=== PATIENT | female | born 1945 | race Two or more races ===

== ENCOUNTER 2020-03-04 12:56 | Outpatient (CLI) | payer MEDICARE, MEDICAID ==
[~2020-03-04] VITALS: Ht 152.4 cm; Wt 87.1 kg
[~2020-03-04 12:56] MED LIST: ASPIRIN81 M1 PO; COZAAR25 MG PO; LEXAPRO10 MG PO; NEXIUM40 MG PO
[2020-03-04 13:10] VITALS: BP 127/75
--- NOTE | 2020-03-04 15:15 | Consultation ---
DATE OF CONSULTATION: 03/04/2020 CHIEF COMPLAINT: Referral for screening colonoscopy, also chronic GERD, abdominal pain, constipation. PAST MEDICAL HISTORY: 1. Constipation. 2. Hypertension. 3. GERD. 4. Depression. 5. Arthritis. PAST SURGICAL HISTORY: Breast reduction. MEDICATIONS: Please see medication reconciliation list. FAMILY HISTORY: No family history of GI malignancies. SOCIAL HISTORY: The patient denies any tobacco, alcohol, or drug abuse. ALLERGIES: No known allergies. REVIEW OF SYSTEMS: Positive for GERD, constipation. PHYSICAL EXAMINATION: VITAL SIGNS: Temperature 97.3, blood pressure 127/75, pulse 78, respirations 20. HEENT: Normocephalic and atraumatic. Sclerae anicteric. NECK: Supple. No evidence of obvious lymphadenopathy. CARDIOVASCULAR: Regular rate and rhythm. Plus S1 and S2. LUNGS: Clear to auscultation bilaterally. ABDOMEN: Positive bowel sounds. Soft and nontender. No rebound. No guarding. No peritoneal sign. EXTREMITIES: No cyanosis, no clubbing, no edema ASSESSMENT AND PLAN: This is a 74-year-old female referred for screening colonoscopy, also complaining of chronic GERD. Plan to do an endoscopy and colonoscopy. We will consider trial of Linzess 72 mcg for constipation if the endoscopy and colonoscopy is negative. I want to thank, Dr. Quinones, for this kind referral. Scott Hutchison M.D. DR: Rachel JOB#: [id number] CC: Scott Quinones M.D.; Fax#: [phone]
== END 2020-03-04 14:56 | disposition home or self-care (01) ==
LOC: PAN 12:56
DX: K21.9 Gastro-esophageal reflux disease without esophagitis (principal); R10.9 Unspecified abdominal pain; K59.00 Constipation, unspecified; I10 Essential (primary) hypertension; F32.9 Major depressive disorder, single episode, unspecified; M19.90 Unspecified osteoarthritis, unspecified site
CPT/HCPCS: G0463

== ENCOUNTER 2020-03-11 09:22 | Day surgery (SDC) | payer MEDICARE, MEDICAID ==
[2020-03-11] VITALS (8 sets, daily range): BP systolic 132–171; BP diastolic 58–91
[~2020-03-11] VITALS: Ht 152.4 cm; Wt 72.6 kg
[~2020-03-11 09:22] MED LIST changes: +LR 1000ml 1,000 ML IVLG SCH
[2020-03-11] MEDS ORDERED: Midazolam 2mg/2ml Inj IVP PRN (09:30)
[2020-03-11] MEDS ORDERED: LR 1000ml 1,000 ML IVLG SCH (09:30)
[2020-03-11] MEDS ORDERED: fentaNYL 100 mcg/2 mL IV PRN (09:30)
[2020-03-11] MEDS ORDERED: Atropine Inj 1mg/10ml Syr IVP PRN (09:30)
[2020-03-11] MEDS ORDERED: Labetalol 5mg/ml 20ml vial IV PRN (09:30)
[2020-03-11] MEDS ORDERED: DiphenhydrAMINE 50mg/ml Inj IVP PRN (09:30)
--- NOTE | 2020-03-11 09:34 | Anethesia Preoperative Eval ---
Lidia Tuttle MD 03/11/20 0934: Anesthesia Pre-op PMH/ROS General Date of Evaluation: Mar 11, 2020 Time of Evaluation: 09:32 Anesthesiologist: allyson ASA Score: ASA 4 Mallampati Score Class I : Soft palate, uvula, fauces, pillars visible Class II: Soft palate, uvula, fauces visible Class III: Soft palate, base of uvula visible Class IV: Only hard plate visible Mallampati Classification: Class II Surgeon: rosa maria Surgical Procedure: egd/colonoscopy Anesthesia History: none Social History: drug use Family History: no anesthesia problems Allergies: Coded Allergies: No Known Allergies (Unverified , 02/26/12) Medications: see eMAR Patient NPO?: Yes Past Medical History Cardiovascular: Reports: HTN, other - hypercholesterolemia Gastrointestinal/Genitourinary: Reports: GERD Musculoskeletal/Integumentary: Reports: OA, DJD Other: obesity PSxH Narrative: breast reduction Anesthesia Pre-op Phys. Exam Physician Exam Constitutional: NAD Neurologic: CN 2-12 intact Cardiovascular: RRR Respiratory: CTA Gastrointestinal: S/NT/ND Airway Exam Mallampati Score: Class II MO: limited Neck: short TMD: 2fb ROM: limited Anesthesia Pre-op A/P Labs Microbiology Date/Time Source Procedure Growth Status 03/08/20 11:05 Nasopharynx SARS-CoV-2 RdRp Gene Assay - Final Complete Risk Assessment & Plan Assessment: asa4 Plan: mac Status Change Before Surgery: No Pre-Antibiotics Drug: Piotr Baca MD 03/11/20 1037: Anesthesia Pre-op PMH/ROS General Date of Evaluation: Mar 11, 2020 Time of Evaluation: 10:02 Anesthesiologist: Mimi ASA Score: ASA 3 Mallampati Classification: Class II Surgeon: Rosa Maria Diagnosis: Colon CA screeningh Surgical Procedure: EGD Colonoscopy Anesthesia History: none Family History: no anesthesia problems Allergies: Coded Allergies: No Known Allergies (Unverified , 02/26/12) Patient NPO?: Yes Past Medical History Cardiovascular: Reports: HTN; Denies: CAD, SC, valve dz, arrhythmia, other Pulmonary: Reports: ABRIL; Denies: asthma, COPD, other Gastrointestinal/Genitourinary: Reports: GERD; Denies: CRI, ESRD, other Neurologic/Psychiatric: Reports: depression/anxiety; Denies: dementia, CVA, TIA, other Endocrine: Reports: hypothyroidism; Denies: DM, steroids, other HEENT: Denies: cataract (L), cataract (R), glaucoma, [place] (L), [place] (R), other Hematology/Immune: Denies: anemia, DVT, bleeding disorder, other Musculoskeletal/Integumentary: Denies: OA, RA, DJD, DDD, edema, other Other: obesity PMH Narrative: as above PSxH Narrative: See H&P Anesthesia Pre-op Phys. Exam Physician Exam Constitutional: NAD Neurologic: CN 2-12 intact Cardiovascular: RRR Respiratory: CTA Gastrointestinal: S/NT/ND Airway Exam Mallampati Score: Class II MO: limited Neck: stiff ROM: limited Teeth: missing Dentures: no upper, no lower Anesthesia Pre-op A/P Studies Pre-op Studies: EKG - SR Risk Assessment & Plan Assessment: ASA 3 Plan: MAC Status Change Before Surgery: No Lidia Tuttle MD Mar 11, 2020 09:34 Piotr Springer MD Mar 11, 2020 10:37
[2020-03-11] MEDS ORDERED: fentaNYL 100 mcg/2 mL IV ONE (10:00)
[2020-03-11] MEDS ORDERED: LR 1000ml ONE (10:00)
--- NOTE | 2020-03-11 10:04 | Pre-Procedure Note/Attestation ---
Pre-Procedure Note/Attestation Complete Prior to Procedure Planned Procedure: not applicable Procedure Narrative: colonoscopy Indications for Procedure Pre-Operative Diagnosis: screening Attestation I attest that I discussed the nature of the procedure; its benefits; risks and complications; and alternatives (and the risks and benefits of such alternatives), prior to the procedure, with the patient (or the patient's legal entry level sales representative). I attest that, if there was a reasonable possibility of needing a blood tra nsfusion, the patient (or the patient's legal entry level sales representative) was given the [facility] standardized written summary, pursuant to the Beka [place]fellow Blood Safety Act ([place] Health and Safety Code # 1645, as amended). I attest that I re-evaluated the patient just prior to the surgery and that there has been no change in the patient's H&P, except as documented below: Scott Hutchison MD Mar 11, 2020 10:03
--- NOTE | 2020-03-11 10:04 | Short Stay Surgery H&P ---
History of Present Illness History of Present Illness Chief Complaint see office consult note HPI Mal Conti is a 74 year old female who was admitted on for Colonoscopy Patient History Allergies: Coded Allergies: No Known Allergies (Unverified , 02/26/12) Medication History Scheduled Aspirin (Aspirin), 81 MG PO DAILY, (Reported) Escitalopram Oxalate* (Lexapro*), 10 MG PO DAILY, (Reported) Esomeprazole Magnesium (Nexium), 40 MG PO DAILY, (Reported) Losartan Potassium* (Cozaar*), 25 MG PO Q12H, (Reported) Physical Exam Vital Signs Last Vital Signs Date Time Temp Pulse Resp B/P (MAP) Pulse Ox O2 Delivery O2 Flow Rate FiO2 03/11/20 09:47 97.9 73 18 171/58 97 Room Air Plan Attestation Are the patient's medical conditions optimized for surgery? Scott Hutchison MD Mar 11, 2020 10:04
--- NOTE | 2020-03-11 10:42 | Endoscopy Procedure Note ---
Endoscopy Procedure Note General Indication for Procedure: screening colon, GERD Procedures Performed: EGD, colonoscopy Operative Findings/Diagnosis: gastritis Specimen: yes Pt Tolerated Procedure Well: Yes Estimated Blood Loss: none Anesthesia Anesthesiologist: ne Anesthesia: MAC Inserted Devices Implant(s) used?: No Quality Quality of Bowel Preparation: Good Did scope reach the cecum?: Yes Was there any complications?: No GI Core Measures 50 yrs or older w/o bx or poly: No 10yrs. F/U recommended: Yes If not recommended, why?: Above average risk 18 years or older w/prev. colo: No Scott Hutchison MD Mar 11, 2020 10:42
--- NOTE | 2020-03-11 10:50 | Immediate Post-Op Evaluation ---
Immediate Post-Op Evalulation Immediate Post-Op Evalulation Procedure: EGD Colonoscopy Date of Evaluation: Mar 11, 2020 Time of Evaluation: 10:49 IV Fluids: 600 Blood Products: none Estimated Blood Loss: none Urinary Output: none Blood Pressure Systolic: 126 Blood Pressure Diastolic: 75 Pulse Rate: 72 Respiratory Rate: 20 O2 Sat by Pulse Oximetry: 98 Temperature (Fahrenheit): 97.8 Pain Score (1-10): 1 Nausea: No Vomiting: No Complications none Patient Status: reacts, patent, none Hydration Status: adequate Piotr Springer MD Mar 11, 2020 10:50
--- NOTE | 2020-03-11 11:30 | Procedure Note ---
DATE OF PROCEDURE: 03/11/2020 SURGEON: Scott Hutchison MD. PROCEDURE: Upper endoscopy with biopsy and colonoscopy. ANESTHESIA: Per Dr. Piotr Springer. INSTRUMENT: Olympus adult flexible endoscope and colonoscope. INDICATION: Screening colonoscopy evaluation and chronic GERD. REASON FOR PROCEDURE: The procedure, risks, benefits, and possible consequences, including hemorrhage, aspiration, perforation and infection, and alternative treatments, were explained to the patient/legal guardian by Dr. Scott Hutchison and the patient/legal guardian understood and accepted these risks. DESCRIPTION OF PROCEDURE: After informed consent was obtained and the patient was adequately sedated, Olympus upper endoscope was advanced from mouth into the second portion of the duodenum and retroflexion was performed in the stomach. The patient had evidence of multiple gastric polyps, most probably fundic gland polyps. The patient also had evidence of gastritis. Random biopsy from antrum was obtained to rule out H. pylori infection. The patient also had a few inflammatory polyp in the pre-pyloric region. There were biopsied. The rest of the examination grossly within normal limits. At this time, the upper endoscope was retrieved and the patient was turned over for colonoscopy. First, rectal exam was performed, which was positive for internal hemorrhoids. Then, the scope was advanced from rectum into the cecum, then subsequently terminal ileum. Quality of prep was very good. The patient had normal colonoscopy examination. No obvious mass, polyp, or any pathology was seen. Retroflexion of rectum showed evidence of internal hemorrhoids. SUMMARY OF FINDINGS: 1. Multiple gastric polyps, most probably fundic gland polyps. 2. Gastritis, status post biopsy. 3. Inflammatory polyp in the pre-pyloric region, status post biopsy. 4. Internal hemorrhoids. RECOMMENDATIONS: Follow up biopsy results and treat accordingly. I want to thank, Dr. Scott Quinones, for this kind referral. Crista Lance JOB#: [id number] CC: Scott Quinones MD.; Fax#: [phone]
--- NOTE | 2020-03-11 11:34 | 48 Hour Post Anesthesia Eval ---
Post Anesthesia Evaluation Procedure: EGD Colonoscopy Date of Evaluation: Mar 11, 2020 Time of Evaluation: 11:33 Blood Pressure Systolic: 148 0: 58 Pulse Rate: 74 Respiratory Rate: 20 Temperature (Fahrenheit): 97.5 O2 Sat by Pulse Oximetry: 98 Airway: patent Nausea: No Vomiting: No Pain Intensity: 1 Hydration Status: adequate Cardiopulmonary Status: stable Mental Status/LOC: patient returned to baseline Follow-up Care/Observations: n/a Post-Anesthesia Complications: none Follow-up care needed: ready to discharge Piotr Springer MD Mar 11, 2020 11:34
== END 2020-03-11 11:40 | disposition home or self-care (01) ==
LOC: GAS 09:22
DX: Z12.11 Encounter for screening for malignant neoplasm of colon (principal); K29.50 Unspecified chronic gastritis without bleeding; B96.81 Helicobacter pylori [H. pylori] as the cause of diseases classified elsewhere; K21.9 Gastro-esophageal reflux disease without esophagitis; K31.7 Polyp of stomach and duodenum; K64.8 Other hemorrhoids; Z79.82 Long term (current) use of aspirin; Z79.899 Other long term (current) drug therapy; I10 Essential (primary) hypertension; E78.00 Pure hypercholesterolemia, unspecified; M19.90 Unspecified osteoarthritis, unspecified site; E66.9 Obesity, unspecified; E03.9 Hypothyroidism, unspecified; G47.33 Obstructive sleep apnea (adult) (pediatric); F32.9 Major depressive disorder, single episode, unspecified; F41.9 Anxiety disorder, unspecified; Z68.31 Body mass index [BMI] 31.0-31.9, adult
CPT/HCPCS: 43239; 93005; 94003; G0121; J2704; J3010; J7120; U0002; 94150

== ENCOUNTER 2020-03-25 12:28 | Outpatient (CLI) | payer MEDICARE, MEDICAID ==
[~2020-03-25 12:28] MED LIST changes: -LR 1000ml 1,000 ML IVLG SCH
--- NOTE | 2020-03-25 15:16 | General Progress Note ---
Subjective ROS Limited/Unobtainable: Yes Allergies: Coded Allergies: No Known Allergies (Unverified , 02/26/12) Objective General Appearance: alert EENT: normal ENT inspection Neck: supple Cardiovascular: normal rate Respiratory/Chest: decreased breath sounds Abdomen: normal bowel sounds, non tender, soft Extremities: non-tender Assessment/Plan Assessment/Plan: SUMMARY OF FINDINGS: 1. Multiple gastric polyps, most probably fundic gland polyps. 2. Gastritis, status post biopsy. 3. Inflammatory polyp in the pre-pyloric region, status post biopsy. 4. Internal hemorrhoids. treat for HP RTC 3 months repeat colon in 5 years Scott Hutchison MD Mar 25, 2020 15:16
== END 2020-03-25 14:28 | disposition home or self-care (01) ==
LOC: PAN 12:28
DX: K31.7 Polyp of stomach and duodenum (principal); K29.70 Gastritis, unspecified, without bleeding; K64.8 Other hemorrhoids; B96.81 Helicobacter pylori [H. pylori] as the cause of diseases classified elsewhere
CPT/HCPCS: 99212